=== PATIENT | female | born 1980 | race Two or more races ===

== ENCOUNTER 2024-06-12 15:06 | Day surgery (SDC) | payer MEDICAID, SELFPAY ==
[2024-06-12] VITALS (8 sets, daily range): BP systolic 103–137; BP diastolic 69–88; PULSE 56–88; RESP 14–20; TEMP 36.2–36.6; O2SAT 98–100; BMI 25.4; BMI 26.2
--- NOTE | 2024-06-12 15:18 | XR_ITS ---
Examination: CT abdomen and pelvis without contrast. Coronal 3-D reconstructions. Sagittal 2-D reconstructions. Date and time of exam:June 12, 2024 1753 hrs. Indications: Right upper abdominal pain beginning 2 days ago CTDI: vol (mGy): 7.57 DLP: (mGycm): 434 Technique: Axial images of the abdomen have been obtained, 3 mm slice thickness Intravenous contrast material has not been administered. Low dose protocols were performed. One or more of the following dose reduction techniques were used; automated exposure control, adjustment of the mA and/or KV according to patient size, use of iterative reconstruction technique. Findings: No focal liver or splenic lesions Contracted gallbladder No pancreatic or adrenal mass. No renal or ureteral calculi, no hydronephrosis. Inflamed appendix below the cecum extending anteriorly, fluid-filled, no free air or pelvic abscess No bowel obstruction Intrauterine device satisfactory position Urinary bladder intact Impression: Acute appendicitis, no localized perforation or pelvic abscess
--- NOTE | 2024-06-12 15:18 | XR_ITS ---
Examination: Pelvic ultrasound, transabdominal, complete Technique: Transabdominal ultrasound of the pelvis performed using grayscale imaging Date and time of exam: June 12, 2024 1641 hrs. Indications: Pelvic and adnexal pain beginning 2 days ago Findings: Uterus 8.4 cm endometrial stripe 0.5 cm, intrauterine device satisfactory position Right ovary 3.9 cm arterial flow 20 mm follicular cyst Left ovary obscured by bowel gas Impression: Intrauterine device satisfactory position No uterine mass or intrauterine gestation Small right ovarian follicular cyst
--- NOTE | 2024-06-12 15:18 | EDNOTE_ITS ---
ED Abdominal Pain RME/HPI General Chief Complaint: Abdominal Pain Stated complaint: LR abdominal pain x 2 day. RO appendicitis per PC Time seen by provider: 06/12/24 15:09 Arrival date/time: 06/12/24 15:06 RME / HPI RME / HPI narrative: This section includes all my notes and documentations, including HPI, PE, and ED course. Hong Joshi MD HPI: 43-year-old female here with a couple day history of abdominal pain. She loc alizes in the lower abdomen, right side. Wants to make sure she has no appendicitis. No nausea or vomiting. No fever or chills. Eating normally. No urinary symptoms. No history of abdominal surgery. Has difficulty describing the quality and quantity of the pain. Uncertain about exacerbating factors or relieving factors. No other complaints. ROS: All negative except as documented in HPI. Physical Exam: General: Alert and oriented. No acute distress when remaining still. Eyes: Conjunctivae and lids clear. ENT: No nasal congestion. Neck: Supple. Heart: RRR. Lungs: No respiratory distress. Good air movement. No rhonchi, wheezing, rales. Abdomen: Soft with equivocal RLQ tenderness. Normal bowel sounds. No distension. No rebound or guarding. Back: No CVA tenderness. Skin: Warm and dry. Neuro: Alert and oriented X 3. I ordered diagnostic tests, including CT and US. At 6 PM on 06/12/2024, the care of the patient was transferred to the night physician. Hong Joshi MD Related Data Previous Rx's ?Medication ?Instructions ?Recorded docusate sodium 100 mg capsule 100 mg PO BID #60 caps 01/13/24 (Colace) ibuprofen 600 mg tablet 600 mg PO Q6H PRN pain #90 t abs 01/13/24 lanolin 50 % topical ointment 1 applic topical TID PRN skin 01/13/24 irritation #15 tubes Allergies Allergy/AdvReac Type Severity Reaction Status Date / Time No Known Allergies Allergy Verified 01/11/24 01:30 Course Quality Measures none Orders Category Date Time Status CT abdomen pelvis wo con Stat Exams 06/12/24 15:18 Ordered US pelvic complete Stat Exams 06/12/24 15:18 Taken CBC Stat Lab 06/12/24 15:23 Completed CMP [Comprehensive Metabolic Panel] Stat Lab 06/12/24 15:23 Completed HCG Qualitative,Urine Stat Lab 06/12/24 15:33 Completed Magnesium Stat Lab 06/12/24 15:23 Completed UA, C/S IF [Urinalysis, C/S if Indicated] Stat Lab 06/12/24 15:33 Completed Vital Signs Vital signs: Vital Signs Temperature 97.9 F 06/12/24 15:28 Pulse Rate 79 06/12/24 15:28 Respiratory Rate 16 06/12/24 15:28 Blood Pressure 103/69 06/12/24 15:28 Pulse Oximetry (%) 98 06/12/24 15:28 Oxygen Delivery Method Room Air 06/12/24 15:28 Abdominal Pain MDM Patient data External records reviewed:: [facility] previous records Clinical information provided by:: patient Social determinants that could affect healthcare access:: none Patient has the following chronic illnesses:: None How is presenting disease/condition affected by chronic disease/condition?: no chronic disease Evaluation data The following diagnostics were reviewed and interpreted by me:: other (specify) (Diagnostics pending) Lab and/or radiology exams considered but not ordered:: None Interpretation Summary: Diagnostics pending Medications / Prescriptions Medications or Prescriptions considered but not ordered:: None Medication administrations:: None Consultations Consultation(s) initiated? (list below): No Diagnosis Differential diagnosis abdominal pain: acute appendicitis, calculus of kidney, constipation, diverticulitis, endometriosis, gastroenteritis and small bowel obstruction Most likely diagnosis given after review of the tests above:: Diagnostics pending Admission Indicated Admission indicated?: not indicated Explain why admission is indicated or not indicated:: Diagnostics pending Admission Request Was there a request for admission?: No Disposition Plan Disposition Plan: other (specify) (Care of the patient was transferred to the night physician) Discharge Plan Prescriptions/Referrals Prescriptions/Med Rec: No Action docusate sodium [Colace] 100 mg capsule 100 mg PO BID Qty: 60 0RF ibuprofen 600 mg tablet 600 mg PO Q6H PRN (Reason: pain) Qty: 90 0RF lanolin 50 % ointment 1 applic topical TID PRN (Reason: skin irritation) Qty: 15 0RF Referrals: No Primary/Family,Physician [Primary Care Provider] - In 1 week Problem List Clinical Impression: Abdominal pain Patient/Caregiver Discharge Instructions Print Language: Chilean
[2024-06-12 15:47] LABS: Basophils # (Auto) 0.1 Thou/mm3 (0.0-0.2); Basophils % (Auto) 1 % (0-2.5); Eosinophils # (Auto) 0.4 Thou/mm3 (0.0-0.5); Eosinophils % (Auto) 4 % (0-10); Hematocrit 37.5 % (36.0-46.0); Hemoglobin 12.7 g/dL (12.0-16.0); Immature Granulocytes % (Auto) 0 % (0-0); Immature Granulocytes Auto 0.02 Thou/mm3 (0.00-0.00); Lymphocytes # (Auto) 2.7 Thou/mm3 (1.0-4.8); Lymphocytes % (Auto) 31 % (10-50); Mean Corpuscular HGB Conc 33.9 g/dl (31.0-37.0); Mean Corpuscular Hemoglobin 30.6 pg (25.0-35.0); Mean Corpuscular Volume 90 fL (80-100); Monocytes # (Auto) 0.8 Thou/mm3 (0.0-0.8); Monocytes % (Auto) 9 % (0-12); Neutrophils # (Auto) 4.8 Thou/mm3 (1.8-7.7); Neutrophils % (Auto) 55 % (37-80); Nucleated Red Blood Cell % 0 /100 WBC (0); Platelet Count 378 Thou/mm3 (140-440); RDW Standard Deviation 40.5 fL (36.4-46.3); Red Blood Count 4.15 Miln/mm3 (4.00-5.20); White Blood Count 8.8 Thou/mm3 (3.6-11.0)
[2024-06-12 16:06] LABS: Alanine Aminotransferase 13 U/L (10-49); Albumin, Serum 4.5 gm/dL (3.5-5.0); Albumin/Globulin Ratio 1.5 (1.2-2.2); Alkaline Phosphatase 88 U/L (46-116); Anion Gap 8 (7-16); Aspartate Amino Transferase 17 U/L (0-34); BUN/Creatinine Ratio 17 Ratio (12-20); Bilirubin,Total 0.3 mg/dL (0.3-1.2); Blood Urea Nitrogen 12 mg/dL (9-23); Calcium 9.5 mg/dL (8.3-10.6); Calcium (Corrected) 9.5 mg/dL (8.5-10.1); Carbon Dioxide 26.8 mMol/L (20.0-31.0); Chloride 106 mMol/L (98-107); Creatinine (Component) 0.7 mg/dL (0.6-1.3); Estimated Creatinine Clearance 95.1 mL/min (>60); Glucose 101 mg/dL (74-106); Osmolality,Calculated 280 (275-295); Potassium 3.7 mMol/L (3.4-5.1); Sodium 141 mMol/L (136-145); Total Protein 7.5 gm/dL (5.7-8.2); eGFR > 60 See Note
[2024-06-12 16:20] LABS: Collection Type, Urine Clean Catch
[2024-06-12 16:44] LABS: Bilirubin,Urine Negative (Negative); Blood,Urine 2+ (Negative); Clarity,Urine Clear (Clear/Hazy); Color,Urine Yellow (Lt Yel-Yel); Culture Indicated,Urine Not Indicated; Glucose, Urine Negative (Negative); Ketones,Urine Negative (Negative); Leukocyte Esterase,Urine Negative (Negative); Nitrite,Urine Negative (Negative); PH,Urine 5.5 (5.0-7.0); Protein,Urine Negative (Neg - Trace); RBC,Urine 9 /hpf (0-3); Specific Gravity,Urine 1.028 (1.001-1.035); Squamous Epithelial Cell,Urine 5 /hpf (0-5); WBC,Urine < 1 /hpf (0-5)
[2024-06-12 17:07] LABS: HCG Qualitative,Urine Negative
--- NOTE | 2024-06-12 19:11 | PD.EDADDENDU ---
Emergency Room Addendum <Clotilde Rhodes - Last Filed: 06/12/24 20:38> Addendum Narrative: 1800: Care assumed from Dr. Joshi, the previous shift emergency physician. Past medical, surgical, social and family history reviewed. Vitals and home medications reviewed. I will assume the care of the patient at this time. Please refer to the emergency department record for history and examination from initial visit.? Physical exam by me shows patient under no acute distress at this time. Patient with minimal tenderness palpation in the right lower quadrant. No rebound. Lungs are clear without rhonchi or rales. 1935: Discussed with Dr. Liu, the general surgeon on-call who reviewed the chart. 2005: Noted that Dr. Liu wrote admission orders. I will go ahead and admit the patient to the hospital. Will keep her n.p.o. Diagnoses: Abdominal pain, Acute appendicitis RADIOLOGY Procedure(s): CT abdomen pelvis wo [facility] Accession Number(s): [id number] cc: Hong Joshi MD; Doyle Marion MD; NO PRIMARY/FAMILY,PHYSICIAN~ Examination: CT abdomen and pelvis without contrast. Coronal 3-D reconstructions. Sagittal 2-D reconstructions. Date and time of exam:June 12, 2024 1753 hrs. Indications: Right upper abdominal pain beginning 2 days ago CTDI: vol (mGy): 7.57 DLP: (mGycm): 434 Technique: Axial images of the abdomen have been obtained, 3 mm slice thickness Intravenous contrast material has not been administered. Low dose protocols were performed. One or more of the following dose reduction techniques were used; automated exposure control, adjustment of the mA and/or KV according to patient size, use of iterative reconstruction technique. Findings: No focal liver or splenic lesions Contracted gallbladder No pancreatic or adrenal mass. No renal or ureteral calculi, no hydronephrosis. Inflamed appendix below the cecum extending anteriorly, fluid-filled, no free air or pelvic abscess No bowel obstruction Intrauterine device satisfactory position Urinary bladder intact Impression: Acute appendicitis, no localized perforation or pelvic abscess Dictated By: Doyle Marion MD Procedure(s): US pelvic complete Accession Number(s): [id number] cc: Hong Joshi MD; Doyle Marion MD; NO PRIMARY/FAMILY,PHYSICIAN~ Examination: Pelvic ultrasound, transabdominal, complete Technique: Transabdominal ultrasound of the pelvis performed using grayscale imaging Date and time of exam: June 12, 2024 1641 hrs. Indications: Pelvic and adnexal pain beginning 2 days ago Findings: Uterus 8.4 cm endometrial stripe 0.5 cm, intrauterine device satisfactory position Right ovary 3.9 cm arterial flow 20 mm follicular cyst Left ovary obscured by bowel gas Impression: Intrauterine device satisfactory position No uterine mass or intrauterine gestation Small right ovarian follicular cyst Dictated By: Doyle Marion MD <Sophia Waddell MD - Last Filed: 06/12/24 20:07> Addendum Narrative: 1800: Care assumed from Dr. Joshi, the previous shift emergency physician. Past medical, surgical, social and family history reviewed. Vitals and home medications reviewed. I will assume the care of the patient at this time. Please refer to the emergency department record for history and examination from initial visit.? Physical exam by me shows patient under no acute distress at this time. Patient with minimal tenderness palpation in the right lower quadrant. No rebound. Lungs are clear without rhonchi or rales. 1936: Discussed with Dr. Liu, the general surgeon on-call who reviewed the chart. 2005: Noted that Dr. Liu wrote admission orders. I will go ahead and admit the patient to the hospital. Will keep her n.p.o. RADIOLOGY Procedure(s): CT abdomen pelvis wo [facility] Accession Number(s): [id number] cc: Hong Joshi MD; Doyle Marion MD; NO PRIMARY/FAMILY,PHYSICIAN~ Examination: CT abdomen and pelvis without contrast. Coronal 3-D reconstructions. Sagittal 2-D reconstructions. Date and time of exam:June 12, 2024 1753 hrs. Indications: Right upper abdominal pain beginning 2 days ago CTDI: vol (mGy): 7.57 DLP: (mGycm): 434 Technique: Axial images of the abdomen have been obtained, 3 mm slice thickness Intravenous contrast material has not been administered. Low dose protocols were performed. One or more of the following dose reduction techniques were used; automated exposure control, adjustment of the mA and/or KV according to patient size, use of iterative reconstruction technique. Findings: No focal liver or splenic lesions Contracted gallbladder No pancreatic or adrenal mass. No renal or ureteral calculi, no hydronephrosis. Inflamed appendix below the cecum extending anteriorly, fluid-filled, no free air or pelvic abscess No bowel obstruction Intrauterine device satisfactory position Urinary bladder intact Impression: Acute appendicitis, no localized perforation or pelvic abscess Dictated By: Doyle Marion MD pelvis us..
[2024-06-12] MEDS: CEFOXITIN 2 GM in SODIUM CHLORIDE 0.9% (Popper) 50 ML IV (20:13)
--- NOTE | 2024-06-12 20:46 | ESHP_ITS ---
HPI Date of Admission 06/12/2024 Chief Complaint Chief Complaint: Right lower quadrant abdominal pain with nausea HPI 43-year-old female without significant past medical history presented to the emergency department with acute onset of abdominal pain. Her pain started yesterday around periumbilical region. The pain was initially intermittent. Since earlier today her pain has become persistent, progressively worse and localized over right lower quadrant. She has had nausea but denies vomiting, fever, chills, diarrhea, constipation or dysuria. She denies having similar symptoms in the past with no recent history of trauma. Review of Systems Constitutional Constitutional: Denies chills and Denies fever(s) Cardiovascular Cardiovascular: Denies chest pain Respiratory Respiratory: Denies cough Gastrointestinal Gastrointestinal: Reports abdominal pain, Reports nausea and Denies vomiting Genitourinary Genitourinary: Denies difficulty voiding Hematologic/Lymphatic Hematologic/Lymphatic: Denies easy bleeding and Denies easy bruising Past Medical History Surgical History OTHER SURGICAL HX: No surgeries in the past Social History SMOKING STATUS: Never smoker SUBSTANCE USE: does not use ALCOHOL: Never Meds Home Medications and Allergies Allergies Allergy/AdvReac Type Severity Reaction Status Date / Time No Known Allergies Allergy Verified 01/11/24 01:30 Exam Vital Signs Temp Pulse Resp BP Pulse Ox O2 Del Method 97.9 F 81 17 116/74 100 Room Air 06/12/24 19:15 06/12/24 19:15 06/12/24 19:15 06/12/24 19:15 06/12/24 19:15 06/12/24 19:15 Constitutional Constitutional: no acute distress Routine Respiratory Exam Respiratory: Present CTA bilaterally Routine Cardiovascular Exam Cardiovascular: Present RRR Routine Abdominal Exam Abdominal: Present soft, normoactive bowel sounds and tenderness (Right lower quadrant tenderness to palpation with guarding, no rebound tenderness or peritonitis at this time); Absent distended Results Results: Laboratory Laboratory results: results reviewed Results: Imaging CT scan - abdomen: report reviewed and image reviewed CT scan - pelvis: report reviewed and image reviewed Assessment & Plan Problem List (1) Acute appendicitis: Qualifiers: Acute appendicitis type: unspecified acute appendicitis type Qualified Code(s): K35.80 - Unspecified acute appendicitis Status: Acute Plan Will take patient to the operating room for laparoscopic possible open appe ndectomy. Risks include but not limited to infection, bleeding, injury to bowel, bladder, uterus, ovaries, surround neurovascular structures, abdominal sepsis and or abdominal abscess, need for further procedure and or operation discussed with the patient via fretted instrument maker hand. Benefits alternatives explained to her, all her questions answered, she agreed and consented to proceed with the operation. Quality Measures Quality Measures none
--- NOTE | 2024-06-12 20:48 | ESOP_ITS ---
Date of Procedure 06/12/24 Pre Op Diagnosis Acute appendicitis Post Op Diagnosis Acute appendicitis Procedure Laparoscopic appendectomy Findings Inflamed, dilated and hyperemic appendix without perforation Procedure Description Patient was brought into the operating room in supine position. After administration of general endotracheal anesthesia, abdomen was prepped and draped in standard surgical manner. A Veress needle was inserted through the umbilicus and pneumoperitoneum was obtained up to 15 mmHg. The Veress needle was removed and a 5 mm umbilical incision was made. A 5 mm trocar was placed and laparoscopic camera was inserted. Under direct visualization a laparoscopic camera a 5 mm trocar placed in suprapubic region and a 10 mm trocar placed in left lower quadrant. The abdomen was inspected, the cecum was identified and followed until the appendix was identified. The appendix was noted to be inflamed, dilated and hyperemic without perforation. A window was created between the appendix and mesoappendix and the appendix was divided near the appendix and cecal junction with blue Endo JOHN stapling device. The mes oappendix was divided with hicks Endo JOHN stapling device. The appendix was placed inside an Endo Catch and removed from the abdomen utilizing left lower quadrant trocar site. Abdomen and pelvis copiously and thoroughly washed and irrigated, all the fluids were suctioned and the suctioned fluid returned clear. Hemostasis was adequate and satisfactory, staple lines were intact without bleeding or any leakage. Left lower quadrant trocar sites fascial defect was closed with 0 Vicryl using Endo closure device. Instruments and trocars removed, pneumoperitoneum was evacuated and the incisions closed with 4-0 Monocryl subcuticular fashion. Instruments, needles and sponge counts were reported to be correct ??2. Patient tolerated the procedure well, was extubated, breathing spontaneously and without difficulty and was transferred to postanesthesia care in stable condition. Anesthesia GETA and local Pathology / specimen Other (Appendix) Estimated Blood Loss 10 Condition Stable Disposition PACU Surgeon Peral Liu MD
--- NOTE | 2024-06-12 21:28 | SUR.PHASEI ---
2128: Pt. AAOx4, vitals stable, breathing unlabored, no complaint of pain or nausea, x3 dermabond sites to ABD CDI, no active bleed noted, report received from Doyle ONOFRE and Trav BARCLAY.
--- NOTE | 2024-06-12 21:58 | SUR.PHASEI ---
2158: Pt. AAOx4, vitals stable, breathing unlabored, no complaint of pain or nausea, dressing to ABD CDI, no active bleed noted, pt. tolerated bites of ice well, gave report to Martina BARCLAY prior to transfer to room 379, family made aware of transfer to room, no complications.
[2024-06-12] MEDS: KCL 20 mEq/L in D5-1/2NS 20 MEQ/1,000 ML BAG 100 MEQ IV (22:52)
[2024-06-12] MEDS: MORPHINE SULF INJ 10 MG/ML VIAL 3 MG IVP (22:53)
[2024-06-13] VITALS: BP 118/74; PULSE 62; RESP 16; TEMP 36.2; O2SAT 98
[2024-06-13] MEDS: CEFOXITIN 2 GM in SODIUM CHLORIDE 0.9% (Popper) 50 ML IV ×2 (00:49→05:23)
[2024-06-13 04:00] VITALS: BP 95/59; PULSE 75; RESP 15; TEMP 36.4; O2SAT 100
[2024-06-13 08:00] VITALS: BP 90/59; PULSE 63; RESP 18; TEMP 36.5; O2SAT 98
[2024-06-13] MEDS: DOCUSATE SOD 100 MG CAPSULE PO (08:29)
[2024-06-13 08:41] VITALS: PULSE 64; PULSE 87; RESP 18; RESP 94; O2SAT 93
--- NOTE | 2024-06-13 10:25 | PC.SS ---
Sunitha Jacome is a 43-year old female admitted to [facility] for Acute Appendicitis. . SS conducted bedside contact with the patient to complete initial assessment and to discuss discharge planning.? Patient confirmed demographic information. Patient identifies her dtr Cyndy Wing [phone] as her surrogate decision maker. Pt is independent with his ADLS, no need for any DME. DC options discussed pt wishes to return home. [facility]. No further needs identified.
--- NOTE | 2024-06-13 11:43 | PD.SURPROG ---
Documentation for date of: 06/13/24 Subjective Subjective Narrative: Patient is seen and examined. Pain is improving. She is tolerating diet well. She is voiding and ambulating without difficulty Exam Vital Signs Temp Pulse Resp BP Pulse Ox O2 Del Method O2 Flow Rate 97.7 F 87 18 90/59 L 93 L Room Air 2 06/13/24 08:00 06/13/24 08:41 06/13/24 08:41 06/13/24 08:00 06/13/24 08:41 06/13/24 08:00 06/12/24 21:38 Constitutional Constitutional: no acute distress Routine Abdominal Exam Abdominal: Present soft, normoactive bowel sounds and tenderness (Left lower quadrant incisional tenderness. Incisions are clean, dry and intact); Absent distended Assessment & Plan Assessment Additional comments: Postop day #1 status post laparoscopic appendectomy Plan Discharge home Procedures Procedures Laparoscopic appendectomy
[2024-06-13 12:00] VITALS: BP 108/62; PULSE 69; RESP 18; TEMP 36.2; O2SAT 98
== END 2024-06-13 13:50 | disposition home or self-care (01) ==
LOC: SERX 19:34 → S2EX 19:47 → S3SX 06-13 08:09
PROVIDERS: Emergency Medicine; Emergency Provider Emergency Medicine; Referring Provider Surgery; Visit Provider Surgery
PROC: 0DTJ4ZZ Resection of Appendix, Percutaneous Endoscopic Approach (ICD-10-PCS; CPT 44970; principal; 2024-06-12 20:00)
DX: K35.30 Acute appendicitis with localized peritonitis, without perforation or gangrene (principal); N83.01 Follicular cyst of right ovary
CPT/HCPCS: 44970; 36415; 74176; 76856; 80053; 81001; 81025; 83735; 85025; 96365; 99285; A4217; A4649; J0131; J0694; J2270; J2704; J2765; J3010; J3480; J3490; J7050; A9270